=== PATIENT | female | born 2000 | race Caucasian/White ===

== ENCOUNTER 2019-11-14 06:56 | Outpatient (CLI) | payer BC, OTHER ==
[2019-11-14 23:46] LABS: BHCG - Serum Negative (NEGATIVE); Pregs Control Background? CLEAR/WHITE (CLR/WHITE); Pregs Control Bar Appear? YES (CONTROL BAR)
[2019-11-15 13:01] LABS: SARS-CoV-2 MS2 Positive; SARS-CoV-2 N Gene Negative; SARS-CoV-2 S Gene Negative; SARS-CoV-2 by NAA Not Detected (NotDetected); SARS-CoV-2 orf1ab Negative
== END 2019-11-14 06:57 | disposition home or self-care (01) ==
LOC: LABBT 06:56
PROVIDERS: ATTEND Specialist
DX: S09.92XA Unspecified injury of nose, initial encounter (principal); J34.89 Other specified disorders of nose and nasal sinuses; J34.2 Deviated nasal septum; J34.3 Hypertrophy of nasal turbinates; Z20.828 Contact with and (suspected) exposure to other viral communicable diseases
CPT/HCPCS: 84703; 85014; 87635; U0003

== ENCOUNTER 2019-11-17 06:26 | Day surgery (SDC) | payer BC ==
[2019-11-16 10:17] VITALS: BMI 21.5
[2019-11-17] MEDS ORDERED: AFRIN NASAL MIST 15 ML BOT ONE (07:02)
== END 2019-11-17 07:35 | disposition home or self-care (01) ==
LOC: SDC 06:26
PROVIDERS: ATTEND Specialist
DX: S09.92XA Unspecified injury of nose, initial encounter (principal); J34.89 Other specified disorders of nose and nasal sinuses; J34.2 Deviated nasal septum; J34.3 Hypertrophy of nasal turbinates; J45.909 Unspecified asthma, uncomplicated; D68.0 Von Willebrand disease; Z53.09 Procedure and treatment not carried out because of other contraindication; Z79.899 Other long term (current) drug therapy
CPT/HCPCS: J2597

== ENCOUNTER 2020-02-06 06:49 | Outpatient (CLI) | payer BC ==
[2020-02-06 16:50] LABS: BHCG - Serum Negative (NEGATIVE); Pregs Control Background? CLEAR/WHITE (CLR/WHITE); Pregs Control Bar Appear? YES (CONTROL BAR)
[2020-02-07 02:12] LABS: SARS-CoV-2 MS2 Positive; SARS-CoV-2 N Gene Negative; SARS-CoV-2 S Gene Negative; SARS-CoV-2 by NAA Not Detected (NotDetected); SARS-CoV-2 orf1ab Negative
== END 2020-02-06 06:50 | disposition home or self-care (01) ==
LOC: LABBT 06:49
PROVIDERS: ATTEND Specialist
DX: Z01.812 Encounter for preprocedural laboratory examination (principal); S09.92XA Unspecified injury of nose, initial encounter; J34.89 Other specified disorders of nose and nasal sinuses; J34.2 Deviated nasal septum; J34.3 Hypertrophy of nasal turbinates; Z20.828 Contact with and (suspected) exposure to other viral communicable diseases
CPT/HCPCS: 84703; 85014; 87635; U0003

== ENCOUNTER 2020-02-09 07:28 | Day surgery (SDC) | payer BC ==
[2020-02-08 08:22] VITALS: BMI 21.4
[2020-02-09] MEDS ORDERED: AFRIN NASAL MIST 15 ML BOT ONE (08:13)
[2020-02-09] MEDS ORDERED: Lidocaine 1% w/Epinephrine 1:100K 20 ML VIAL ONE (09:21)
[2020-02-09] MEDS ORDERED: EPINEPHrine 1 MG/ML AMP ONE (09:21)
[2020-02-09] MEDS ORDERED: Bacitracin Zinc Ointment 30 gm TUBE ONE (09:21)
[2020-02-09] MEDS ORDERED: Fentanyl 100 MCG/2 ML VIAL ONE ×3 (09:23→12:36)
[2020-02-09] MEDS ORDERED: Midazolam HCl 2 mg/2 ml Vial ONE (09:23)
[2020-02-09] MEDS ORDERED: Ondansetron PF 4 MG/2 ML Vial ONE ×2 (11:30→11:43)
[2020-02-09] MEDS ORDERED: Glycopyrrolate 0.2 MG/ML 5 ML SYRINGE ONE (11:43)
[2020-02-09] MEDS ORDERED: Lidocaine 1% PF 5 ML VIAL ONE (11:43)
[2020-02-09] MEDS ORDERED: Rocuronium Bromide 10 MG/ML (10ML VIAL) ONE (11:43)
[2020-02-09] MEDS ORDERED: PROPOFOL 200 MG/20 ML VIAL ONE (11:43)
[2020-02-09] MEDS ORDERED: Dexamethasone 20 MG/5 ML VIAL ONE (11:43)
[2020-02-09] MEDS ORDERED: hydrALAZINE 20 MG/ML VIAL ONE (13:21)
[2020-02-09] MEDS ORDERED: hydrALAZINE 20 MG/ML VIAL SLOW IVP SCH (13:45)
[2020-02-09] MEDS ORDERED: Hydrocodone-Acetamin 15 ML UDCUP ONE ×2 (13:50→15:55)
--- NOTE | 2020-02-10 07:57 | OP ---
DATE OF PROCEDURE: 02/09/2020 PREOPERATIVE DIAGNOSES: Profound septal deformity, rhinogenic headache, and obstructive hypertrophic inferior turbinates. POSTOPERATIVE DIAGNOSES: Profound septal deformity, rhinogenic headache, and obstructive hypertrophic inferior turbinates. PROCEDURE PERFORMED: Septoplasty and bilateral nasal endoscopy with submucosal resection of inferior turbinates. DESCRIPTION OF PROCEDURE: Septoplasty: After local anesthesia was infiltrated into the submucoperichondrial plane, a standard Chambers incision was made with a #15 blade down to the level of the septal cartilage. The caudal elevator was used to elevate the mucoperichondrium from the underlying cartilage. We then proceeded beyond the bony cartilaginous junction and elevated the bony periosteum as well. Great attention was paid to the spur to prevent rent formation in the septal flap. A transcartilaginous incision was then made, while preserving an adequate dorsal and caudal cartilaginous strut for tip support. The deformed cartilage was removed and disarticulated from the bony cartilaginous junction and maxillary crest. This was placed in saline and would later be crushed and returned to the mucoperichondrial envelope. We then elevated the contralateral periosteum from the bony cartilaginous region and removed the deformed portions of the bone and bony spurs. The cartilage was then crushed and placed back into the mucoperichondrial envelope and the mucosa was re-approximated with a quilting stitch composed of rapidly absorbent gut suture. The Wilmer incision was also closed with interrupted gut suture. At the completion of the case, Velez splints were placed and suture secured to the caudal septum. Bilateral nasal endoscopy with submucosal resection of inferior turbinates: After consent was obtained, the patient was identified, brought to the operating room, and placed on the operating room table in the supine position. Consent was obtained, notifying the patient of the possibility of additional infections, bleeding, brain injury, and eye/orbital injury. The patient was placed on the operating room table, and general endotracheal anesthesia and intravenous access was obtained. The patient was then positioned, prepped and draped for endoscopic sinus surgery. Nasal preparation included trimming nasal vestibular hairs and spraying in topical Afrin. We then placed Afrin topical solution on nasal pledgets and strategically located them intranasally. The perinasal mucosa was injected with 1% lidocaine with 1:100,000 epinephrine in the submucoperichondrial plane of the septum, lateral nasal wall, and anterior to the uncinate. The patient was then prepped and draped in a sterile fashion and positioned for endoscopic sinus surgery. With the 0-degree endoscope, the patient underwent systematic nasal endoscopy. There were no suspicious internasal masses or lesions identified. We then focused our attention to the osteomeatal complex region under the middle turbinate. The inferior turbinates were visualized with a 0 degree endoscope and outfractured with a Oakley elevator. The inferior medial aspect was cauterized with the electrocautery. Hemostasis was obtained . After adequate airway was established, we turned our attention to the contralateral side and used a similar procedure. Again, a Oakley elevator was used to outfracture inferior turbinates under endoscopic visualization. With a suction cautery, the free inferior medial aspect was cauterized under direct visualization along the length of the inferior turbinate. At this point, we then turned our attention to the contralateral side and proceeded with endoscopic sinus surgery. At the completion of the case, Rice keel splints were placed in the ethmoid cavities after the ethmoidectomy. There were no complications. The patient tolerated the procedure well and was discharged to the recovery room in stable condition prior to return to the preoperative day stay with ultimate discharge home. Prescriptions for pain medication and antibiotics were provided. The patient received intramuscular Depo-Medrol during the case. Job ID: [id number]
== END 2020-02-09 16:30 | disposition home or self-care (01) ==
LOC: SDC 07:28
PROVIDERS: ATTEND Specialist
PROC: 09SM0ZZ Reposition Nasal Septum, Open Approach (ICD-10-PCS; principal; 2020-02-09)
PROC: 09TL8ZZ Resection of Nasal Turbinate, Via Natural or Artificial Opening Endoscopic (ICD-10-PCS; principal; 2020-02-09)
DX: J34.2 Deviated nasal septum (principal); J34.3 Hypertrophy of nasal turbinates; G44.89 Other headache syndrome; J34.89 Other specified disorders of nose and nasal sinuses; S09.92XA Unspecified injury of nose, initial encounter; D68.0 Von Willebrand disease; J45.909 Unspecified asthma, uncomplicated; Z79.899 Other long term (current) drug therapy; X58.XXXA Exposure to other specified factors, initial encounter
CPT/HCPCS: J0171; J0360; J1100; J2250; J2405; J2597; J2704; J3010

== ENCOUNTER 2020-02-15 12:34 | Day surgery (SDC) | payer BC ==
[~2020-02-15 12:34] MED LIST: Dexamethasone 20 MG/5 ML VIAL ONE; Lidocaine 1% PF 5 ML VIAL ONE; Ondansetron PF 4 MG/2 ML Vial ONE; PROPOFOL 200 MG/20 ML VIAL ONE; Succinylcholine 200 MG/10 ml SYRINGE FS ONE
[2020-02-15] MEDS ORDERED: Midazolam HCl 2 mg/2 ml Vial ONE (12:39)
[2020-02-15] MEDS ORDERED: Fentanyl 100 MCG/2 ML VIAL ONE ×3 (12:39→14:50)
[2020-02-15] MEDS ORDERED: Lidocaine 1% w/Epinephrine 1:100K 20 ML VIAL ONE (13:15)
[2020-02-15] MEDS ORDERED: EPINEPHrine 1 MG/ML AMP ONE (13:15)
[2020-02-15] MEDS ORDERED: Meperidine HCl/PF 25 MG/ML VIAL ONE (14:21)
[2020-02-15] MEDS ORDERED: HYDROcodone/Acetaminophen 5/325 mg Tablet ONE (15:33)
[2020-02-15] MEDS ORDERED: Metoprolol Tartrate 5 MG/5 ML VIAL ONE (15:45)
--- NOTE | 2020-02-15 15:56 | OP ---
DATE OF PROCEDURE: 02/15/2020 PREOPERATIVE DIAGNOSES: 1. Coagulopathic epistaxis. 2. Von Willebrand disease. POSTOPERATIVE DIAGNOSES: 1. Coagulopathic epistaxis. 2. Von Willebrand disease. PROCEDURES PERFORMED: 1. Evaluation under anesthesia. 2. Endoscopic control of nasal hemorrhage. PROCEDURE IN DETAIL: After consent was obtained, the patient was identified, brought to the operating room, placed on operating room table, the patient was intubated in rapid sequence fashion. We then turned our attention to the nose and removed extensive clots and previously placed packing from her nose. Clot from her oropharynx was also removed. We then examined the nose endoscopically and found 3 bleeding points, one from the inferior turbinate, one from the middle turbinate, and one from the mid septal region. The spots were cauterized and then treated with a procoagulant and that was followed with packing with both Gelfoam as well as Avitene. A Velez splint was placed in the contralateral side to keep the septum in midline and after all hemostasis was obtained, the patient was awakened, extubated, and taken to recovery room in stable condition prior to discharge home. Job ID: [id number]
[2020-02-15] MEDS ORDERED: hydrALAZINE 20 MG/ML VIAL ONE (16:25)
== END 2020-02-15 17:05 | disposition home or self-care (01) ==
LOC: SDC 12:34
PROVIDERS: ATTEND Specialist
PROC: 093K8ZZ Control Bleeding in Nasal Mucosa and Soft Tissue, Via Natural or Artificial Opening Endoscopic (ICD-10-PCS; principal; 2020-02-15)
DX: R04.0 Epistaxis (principal); D68.0 Von Willebrand disease; J45.909 Unspecified asthma, uncomplicated; D64.9 Anemia, unspecified
CPT/HCPCS: J0171; J0360; J1100; J2175; J2250; J2405; J2597; J2704; J3010